=== PATIENT | female | born 1995 | race Caucasian/White ===

== ENCOUNTER 2020-01-01 09:33 | Outpatient (REF) | payer MEDICAID, SELFPAY ==
--- NOTE | 2020-01-01 09:00 | PAPFT_PTH ---
PATIENT: Jennyfer Schwab LOC: [facility] U#:[id number] AGE/SX: 24/F ROOM: RE01/01/[address]: FIDENCIO Lovell : 1995 BED: DIS: 01/01/2020 SPEC #: [id number] RECD: 01/01/20 13:01 STATUS: ORALIA RENaye #: [id number] MILEY: 01/01/20 09:[address]: Lamar Moss DEPT: [facility]LY [facility], [facility] Cytology RECD BY: Corrina Ferrara ENTERED: 01/01/20 13:01 SP TYPE: PAPFT OTHR DR: Noris Ulrich APRN Tissues: 1 - CX/ENDOCX FOR PAP SMEARS Procedures: PAP THIN PREP/[facility] Screening Comments: [id number]
[2020-01-02 14:48] LABS: Chlamydia Result Negative (Negative); GC Result Negative (Negative)
== END 2020-01-01 09:53 ==
LOC: LBN 09:33
PROVIDERS: PCP Nurse Practitioner Family; Visit Provider Nurse Practitioner Family
DX: Z11.3 Encounter for screening for infections with a predominantly sexual mode of transmission (principal); Z12.4 Encounter for screening for malignant neoplasm of cervix
CPT/HCPCS: 87491; 87591; 88142

== ENCOUNTER 2021-07-07 01:07 | Outpatient (CLI) | payer MEDICAID, SELFPAY ==
--- NOTE | 2021-07-07 07:45 | DI.US_ITS ---
Exam(s) US BREAST LT COMPLETE US BREAST RT COMPLETE EXAM: US BREAST LT COMPLETE CLINICAL HISTORY: 1cm lump at 3:00,N63.0 TECHNIQUE: Ultrasound left breast performed using standard protocol. COMPARISON: US US BREAST RT COMPLETE from 07/07/2021 FINDINGS: No solid or cystic masses, hypoechoic foci, areas of abnormal shadowing, or areas of skin thickening. No dilated ducts. Normal axillary lymph nodes. IMPRESSION: No sonographically suspicious finding. A negative ultrasound should not preclude further investigation of a clinically suspicious palpable a bnormality. BI-RADS Category 1 - Negative DATA REPOSITORY:
== END 2021-07-07 01:27 ==
PROVIDERS: PCP Nurse Practitioner Family; Visit Provider Nurse Practitioner Women's Health
DX: N63.12 Unspecified lump in the right breast, upper inner quadrant; N60.12 Diffuse cystic mastopathy of left breast; N64.4 Mastodynia; Z80.3 Family history of malignant neoplasm of breast; N60.11 Diffuse cystic mastopathy of right breast
CPT/HCPCS: 76642

== ENCOUNTER 2022-04-10 19:13 | Emergency (ER) | payer MEDICAID, SELFPAY ==
[2022-04-10 19:17] VITALS: BP 123/78; PULSE 77; RESP 16; TEMP 36.7; O2SAT 100
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
[2022-04-10] MEDS: Lidocaine 5% Patch 1 PATCH TP (19:49)
[2022-04-10] MEDS: Methocarbamol 500 MG TAB 1000 MG PO ×2 (19:49)
== END 2022-04-10 19:57 | disposition home or self-care (01) ==
PROVIDERS: Emergency Provider Emergency Medicine; PCP Nurse Practitioner Family
DX: S39.012A Strain of muscle, fascia and tendon of lower back, initial encounter (principal); X50.0XXA Overexertion from strenuous movement or load, initial encounter
CPT/HCPCS: 81025; 99283; 81003

== ENCOUNTER 2023-10-04 09:46 | Emergency (ER) | payer MEDICAID, SELFPAY ==
[2023-10-04 09:54] VITALS: BP 140/93; PULSE 101; RESP 16; TEMP 36.7; O2SAT 98
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
[2023-10-04] MEDS: Dexamethasone 4 MG TAB PO (10:41)
[2023-10-04 10:44] VITALS: BP 140/93; PULSE 80; RESP 16; TEMP 36.7; O2SAT 98
== END 2023-10-04 10:42 | disposition home or self-care (01) ==
PROVIDERS: Emergency Provider Emergency Medicine
DX: T49.8X1A Poisoning by other topical agents, accidental (unintentional), initial encounter (principal); L23.2 Allergic contact dermatitis due to cosmetics; Y92.018 Other place in single-family (private) house as the place of occurrence of the external cause
CPT/HCPCS: 99283; J8540